=== PATIENT | female | born 1985 | race Two or more races ===

== ENCOUNTER 2018-04-11 15:01 | Emergency (ER) | payer MEDICAID ==
[~2018-04-11] VITALS: Ht 165.1 cm; Wt 70.0 kg
[2018-04-11 15:04] VITALS: BP 111/72
== END 2018-04-11 15:44 | disposition left against medical advice (07) ==
LOC: ER 15:01
DX: R55 Syncope and collapse (principal); Z53.21 Procedure and treatment not carried out due to patient leaving prior to being seen by health care provider